=== PATIENT | female | born 1970 | race Caucasian/White ===

== ENCOUNTER → 2018-12-24 | Outpatient (CLI) | payer BC ==
[2014-06-18 05:35] VITALS: BP 113/66
[~2018-12-24] MED LIST: ALBU8.5H6 INH; ALPR0.5T PO; NAPR500T8 PO; OMEG300C PO; PRAV20TA2 PO
--- NOTE | 2018-12-24 13:19 | KCIC ---
BILATERAL SCREENING MAMMOGRAM History: Routine screening. Comparison: None. This is a baseline examination. Technique: Routine bilateral digital mammogram views were obtained. Findings: Breast Tissue Density A : The breasts are almost entirely fatty. Mild bilateral arterial calcifications are noted. There are no dominant masses, suspicious microcalcifications, or architectural distortion. IMPRESSION: No mammographic evidence of malignancy. Recommend routine screening. BI-RADS category 2: Benign findings. The images were reviewed with computer aided detection. Patient information is entered into the reminder system with a target due date for the next screening mammogram. Mammography is the most sensitive method for finding small breast cancers, but it does not detect them all and is not a substitute for careful clinical examination. A negative mammogram does not negate a clinically suspicious finding and should not result in delay in biopsying a clinically suspicious abnormality. "Our facility is accredited by the [employer] Mammography Program." Electronically signed by: Dom Aggarwal MD (12/24/2018 1:16 PM) [id number]
== END | disposition home or self-care (01) ==
LOC: KCIC MAMMO 11:12
PROVIDERS: ATTEND Family Medicine
DX: Z12.31 Encounter for screening mammogram for malignant neoplasm of breast (principal); I70.8 Atherosclerosis of other arteries
CPT/HCPCS: 77067